=== PATIENT | male | born 1960 | race Caucasian/White ===

== ENCOUNTER 2016-11-12 13:08 | Day surgery (SDC) | payer OTHER ==
[2016-11-11 16:10] VITALS: BMI 31.3
[~2016-11-12] VITALS: Ht 182.9 cm; Wt 107.0 kg
[2016-11-12] VITALS (9 sets, daily range): BP systolic 130–148; BP diastolic 70–85; PULSE 67–72; RESP 16–23; Ht 182.9 cm; Wt 107.0 kg
[2016-11-12] MEDS ORDERED: OMEG-135 PO (13:59)
[2016-11-12] MEDS ORDERED: MILK150C2 PO (13:59)
[2016-11-12] MEDS ORDERED: SODIUM BICARBONATE (IV ADD) 50 ML ONE (14:11)
[2016-11-12] MEDS ORDERED: MIDAZOLAM 1 MG/ML 2 ML INJ ONE ×2 (14:27→15:52)
[2016-11-12] MEDS ORDERED: FENTAnyl 50 MCG/ML VIAL ONE (14:27)
[2016-11-12] MEDS: LIDOCAINE 2%/EPI 30 ML INJ ONE ×2 (14:47→15:15)
[2016-11-12] MEDS ORDERED: NA BICARB 50 MEQ/50 ML VIAL INJ ONE ×2 (14:47→15:15)
[2016-11-12] MEDS ORDERED: morphine 2 MG INJ IV PRN (15:00)
[2016-11-12] MEDS ORDERED: HYDROmorphONE (0.2 MG/ML) 10ML SYG IV PRN ×3 (15:00)
[2016-11-12] MEDS ORDERED: FENTAnyl 50 MCG/ML VIAL IV PRN ×2 (15:00)
[2016-11-12] MEDS ORDERED: MEPERIDINE 25 MG INJ IV PRN (15:00)
[2016-11-12] MEDS ORDERED: ONDANSETRON 4 MG INJ IV PRN (15:00)
== END 2016-11-12 17:55 | disposition home or self-care (01) ==
LOC: SDS 13:08
PROVIDERS: ATTEND Otolaryngology
DX: D17.0 Benign lipomatous neoplasm of skin and subcutaneous tissue of head, face and neck (principal)
CPT/HCPCS: 11426; 88307; J2250; J3010; Z7512; Z7610